=== PATIENT | male | born 1985 | race Caucasian/White ===

== ENCOUNTER 2019-03-07 13:02 | Emergency (ER) | payer BC, OTHER ==
[2019-03-07 13:08] VITALS: RESP 18
[2019-03-07] MEDS ORDERED: SODIUM CHLORIDE 0.9% 1,000 ML IV STA (13:09)
[2019-03-07 14:03] LABS: ALT 61 U/L (21-72); AST 28 U/L (17-59); Albumin 5.1 g/dL (3.5-5.0); Alkaline Phosphatase 66 U/L (38-126); Amylase 43 U/L (30-110); Anion Gap 11 mmol/L; Blood Urea Nitrogen 11 mg/dL (9-20); Carbon Dioxide 21 mmol/L (22-30); Chloride 107 mmol/L (98-107); Glucose 98 mg/dL (74-99); Lipase 58 U/L (23-300); Potassium 4.5 mmol/L (3.5-5.1); Sodium 139 mmol/L (137-145); Total Bilirubin 0.9 mg/dL (0.2-1.3); Total Protein 7.9 g/dL (6.3-8.2)
[2019-03-07 14:18] LABS: HCT 48.4 % (39.0-53.0); HGB 16.9 gm/dL (13.0-17.5); MCH 31.6 pg (25.0-35.0); MCHC 34.9 g/dL (31.0-37.0); MCV 90.7 fL (80.0-100.0); Mean Platelet Volume 9.8; Platelet Count 221 k/uL (150-450); RBC 5.33 m/uL (4.30-5.90); RDW 12.1 % (11.5-15.5)
--- NOTE | 2019-03-07 14:30 | CT ---
EXAMINATION TYPE: CT abdomen pelvis w con DATE OF EXAM: 03/07/2019 COMPARISON: None HISTORY: Right lower quadrant pain CT DLP: 968.4 mGycm CONTRAST: CT scan of the abdomen and pelvis is performed without Oral Contrast and with IV Contrast, patient in jected with 100 mL of Isovue 300. FINDINGS: LUNG BASES-: No visible nodule. No infiltrate. LIVER/GB: No calcified gallstones. Mild hepatic steatosis identified. No space occupying hepatic l esion. Biliary tree is of normal caliber. PANCREAS: No inflammation. No distinct mass. SPLEEN: No splenic enlargement. No lesion seen. ADRENALS: No nodule. No thickening. KIDNEYS/BLADDER: Distal right-sided ureteral calculus measuring 3.6 mm is approximately 4 cm proximal to the right UVJ. There is mild right-sided hydroureteronephrosis. Additional nonobstructing bilater al renal calculi noted. No evidence for solid or cystic renal mass. BOWEL: Normal appendix. Normal bowel caliber. No inflammation. GENITAL ORGANS: No gross abnormality. LYMPH NODES: No greater than 1cm abdominal or pelvic lymph nodes are appreciated. AORTA: No significant abnormality. OSSEOUS STRUCTURES: No significant abnormality is seen. OTHER: No significant additional abnormality is seen. IMPRESSION: 1. Distal right-sided ureteral calculus measuring 3.6 mm is approximately 4 cm proximal to the right UVJ. There is mild right-sided hydroureteronephrosis.
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
[2019-03-07 15:14] LABS: Eosinophils # (M) 0.06 k/uL (0-0.7); Lymphocytes # (M) 1.44 k/uL (1.0-4.8); Neutrophils % (M) 70 %; Nucleated Red Blood Cells 0 /100 WBC (0-0); Total Cells Counted 100
[2019-03-07 15:14] LABS: Appearance,Urine Clear (Clear); Bilirubin,Urine Negative (Negative); Blood,Urine Small (Negative); Color,Urine Light Yellow; Glucose,Urine (UA) Negative (Negative); Ketones,Urine Negative (Negative); Leukocyte Esterase,Urine Negative (Negative); Nitrite,Urine Negative (Negative); Protein,Urine Negative (Negative); RBC,Urine 7 /hpf (0-5); Specific Gravity,Urine 1.023 (1.001-1.035); Urobilinogen,Urine <2.0 mg/dL (<2.0); WBC,Urine 1 /hpf (0-5)
[2019-03-07 15:45] VITALS: BP 130/95; PULSE 90; TEMP 98.6
== END 2019-03-07 15:32 | disposition home or self-care (01) ==
LOC: EC 13:02
DX: N20.1 Calculus of ureter (principal); F17.200 Nicotine dependence, unspecified, uncomplicated; Z53.29 Procedure and treatment not carried out because of patient's decision for other reasons; Z79.899 Other long term (current) drug therapy
CPT/HCPCS: 36415; 80053; 82150; 83605; 83690; 85025; 81001; 74177; 99284; 96360; Q9967

== ENCOUNTER → 2024-04-28 | Outpatient (CLI) | payer BC ==
--- NOTE | 2024-04-28 10:51 | CT ---
EXAMINATION TYPE: CT pelvis w con DATE OF EXAM: 04/28/2024 COMPARISON: 03/07/2019 HISTORY: 38-year-old male R10.31 RIGHT LOWER QUADRANT PAIN R10.30 ABD PAIN, right inguinal pain x8 mo nths TECHNIQUE: Contiguous axial scanning of the pelvis following administration of 100 ml Isovue 300 IV c ontrast. Delayed images through the bladder and coronal/sagittal reconstructions performed. CT DLP: 889.2 mGycm Automated exposure control for dose reduction was used. FINDINGS: Tiny 1.8 cm fatty right periumbilical hernia, unchanged from 2019. No dilated small bowel, free fluid, or free air. No lower abdominal or pelvic lymphadenopathy is seen. Normal appendix. Mild stool distal colon with oral contrast progressing to the rectum. No pericolonic inflammatory change. No inguinal canal or femoral canal hernia seen. Mild circumferential bladder wall. Left-sided pelvic phlebolith. Prostate gland borderline in size to 4.0 cm wide. Moderate degenerative disc disease L5-S1. Moderate bilateral neuroforaminal stenosis here. IMPRESSION: 1. NORMAL APPENDIX VISUALIZED. 2. MILD CIRCUMFERENTIAL BLADDER WALL THICKENING MAY BE CHRONIC FOR THE PATIENT. CORRELATE TO EXCLUDE CYSTITIS. THE PROSTATE GLAND IS BORDERLINE IN SIZE AT 4.0 CM WIDE. 3. A SMALL 1.8 CM FATTY RIGHT PERIUMBILICAL HERNIA REMAINS UNCHANGED. 4. MODERATE DEGENERATIVE DISC DISEASE L5-S1 WITH MODERATE BILATERAL NEUROFORAMINAL STENOSIS.
== END | disposition home or self-care (01) ==
LOC: RADCTMAIN 08:38
PROVIDERS: ATTEND Surgery
DX: M48.061 Spinal stenosis, lumbar region without neurogenic claudication (principal); M51.37 Other intervertebral disc degeneration, lumbosacral region
CPT/HCPCS: 72193; Q9967